=== PATIENT | female | born 1995 | race Native Hawaiian/Other Pacific Islander ===

== ENCOUNTER 2018-10-27 09:05 | Outpatient (CLI) | payer BC | END 2018-10-27 19:35 | disposition home or self-care (01) | LOC: US 09:05 | DX: Z82.71 Family history of polycystic kidney (principal) ==

== ENCOUNTER 2021-12-11 11:36 | Outpatient (CLI) | payer OTHER ==
[2021-12-11 11:52] LABS: PLATELET COUNT 345 K/uL (152-353)
[2021-12-11 12:15] LABS: POTASSIUM 4.3 mmol/L (3.6-5.2)
== END 2021-12-11 19:00 | disposition home or self-care (01) ==
LOC: LABW 11:36
PROVIDERS: ATTEND Physician Assistant
DX: Z79.899 Other long term (current) drug therapy (principal); R53.83 Other fatigue; E03.9 Hypothyroidism, unspecified
CPT/HCPCS: 36415; 80053; 80061; 82306; 82607; 82670; 82746; 83036; 84144; 84403; 84436; 84443; 84480; 85027